=== PATIENT | female | born 1935 | race Caucasian/White ===

== ENCOUNTER → 2018-03-17 | Outpatient (CLI) | payer MEDICARE ==
[~2018-03-17] MED LIST: CALMAGZIN PO; Colace100 MG PO; DICL75ER PO; HYDR1TAB94 PO; LEVSOD100 PO; LOSARTAN POTAS100 MG PO; Lovastatin20 MG PO; NAPR500EC PO; Norco 5-325 Ta1 EACH PO; OMEP20ER PO; PROBIOTIC1 EAC1 PO
== END | disposition home or self-care (01) ==
LOC: PLD 14:09 → LAB SHORT 14:09
DX: D04.30 Carcinoma in situ of skin of unspecified part of face (principal)
CPT/HCPCS: 88305

== ENCOUNTER → 2020-05-13 | Outpatient (CLI) | payer MEDICARE | END | disposition home or self-care (01) | LOC: LAB SHORT 08:28 → PLD 08:28 | DX: D09.8 Carcinoma in situ of other specified sites (principal); L72.0 Epidermal cyst; L90.5 Scar conditions and fibrosis of skin | CPT/HCPCS: 88305 ==

== ENCOUNTER 2020-10-29 07:16 | Day surgery (SDC) | payer MEDICARE ==
[~2020-10-29] VITALS: Ht 169 cm; Wt 73.7 kg
--- NOTE | 2020-10-29 08:22 | NUR ---
INTO SDS VIA W/C. ABLE TO TRANSFER TO BED INDEPENDENTLY. Lungs clear T/O to Auscultation. Patient confirms NPO status and agrees with scheduled surgery.
--- NOTE | 2020-10-29 08:58 | NUR ---
10/29/20 0859 Rodrigue Yepez History, Chart, Medications and Allergies reviewed before start of procedure.MONITOR INTACT WITH CONTINUOUS PULSE OXIMETRY AND INTERMITTENT BP.3-LEAD EKG REVIEWED WITH PHYSICIAN PRIOR TO START OF PROCEDURE.O2 VIA N/C INTACT THROUGHOUT SEDATION/PROCEDURE. PATIENT DETERMINED TO BE ASA APPROPRIATE FOR PROPOFOL SEDATION PRIOR TO START OF PROCEDURE BY DR. PITTS.
--- NOTE | 2020-10-29 10:02 | NUR ---
Discharge instructions reviewed with patient. Patient verbalizes understanding. Copy given to patient to take home. PT STATES ABLE TO SWALLOW WELL, NO PAIN. DRINKING WATER. REVIEWED DC INSTRUCTIONS W/DAUGHTER LIZ WELL. Discharged via wheelchair to private car for ride home.
[2021-01-28] MEDS ORDERED: CLOP75 PO (12:50)
[2021-01-28] MEDS ORDERED: Aspir 8181 MG PO (12:50)
[2021-01-28] MEDS ORDERED: PANT40 PO (12:52)
== END 2020-10-29 10:00 | disposition home or self-care (01) ==
LOC: ORSCMMR 07:16 → ORD 08:30 → ORSCMMR 08:30
PROVIDERS: Internal Medicine Gastroenterology
PROC: 0DB58ZX Excision of Esophagus, Via Natural or Artificial Opening Endoscopic, Diagnostic (ICD-10-PCS; principal; 2020-10-29 08:30)
PROC: 0DB48ZX Excision of Esophagogastric Junction, Via Natural or Artificial Opening Endoscopic, Diagnostic (ICD-10-PCS; principal; 2020-10-29 08:30)
PROC: 0D758ZZ Dilation of Esophagus, Via Natural or Artificial Opening Endoscopic (ICD-10-PCS; principal; 2020-10-29 08:30)
PROC: 0DB68ZX Excision of Stomach, Via Natural or Artificial Opening Endoscopic, Diagnostic (ICD-10-PCS; principal; 2020-10-29 08:30)
DX: R13.14 Dysphagia, pharyngoesophageal phase (principal); K22.10 Ulcer of esophagus without bleeding; K44.9 Diaphragmatic hernia without obstruction or gangrene; K21.9 Gastro-esophageal reflux disease without esophagitis; Z86.73 Personal history of transient ischemic attack (TIA), and cerebral infarction without residual deficits; I25.2 Old myocardial infarction; I10 Essential (primary) hypertension; E03.9 Hypothyroidism, unspecified; E78.00 Pure hypercholesterolemia, unspecified; Z79.82 Long term (current) use of aspirin; Z79.899 Other long term (current) drug therapy
CPT/HCPCS: 88305; 88342; A9270; C1726; J2704; J7120

== ENCOUNTER → 2020-12-20 | Outpatient (CLI) | payer MEDICARE ==
[2020-12-20 12:27] LABS: Bun/Creatinine Ratio 15.7 (12.0-20.0); Calcium, Blood 9.1 mg/dL (8.5-10.1); Creatinine, Blood 1.08 mg/dL (0.40-1.00); Potassium, Blood 4.1 mmol/L (3.5-5.5); Thyroid Stimulating Hormone 0.046 uIU/mL (0.360-4.800)
== END | disposition home or self-care (01) ==
LOC: LAB SHORT 12:03
PROVIDERS: Physician Assistant
DX: E03.9 Hypothyroidism, unspecified (principal); R60.9 Edema, unspecified
CPT/HCPCS: 80048; 83880; 84443; 84484; 85379

== ENCOUNTER 2021-01-29 08:39 | Day surgery (SDC) | payer MEDICARE ==
[~2021-01-29] VITALS: Ht 172.7 cm; Wt 73.1 kg
[~2021-01-29 08:39] MED LIST changes: +Aspir 8181 MG PO; +CLOP75 PO; +PANT40 PO
--- NOTE | 2021-01-29 09:30 | NUR ---
PATIENT STATES SHE IS BEING TREATED FOR ACUTE CHF AN OUTPATIENT, AND BREATHING HAS IMPROVED, BUT SHE STILL FEELS SOB WITH ACTIVITY OR SHORT WALKS. PATIENT AMBULATED TO BEDSIDE IN SDS. RESP. EVEN AND UNLABORED. LUNGS CLEAR T/O TO AUSCULTATION. NO COUGHING NOTED. DR PITTS INFORMED OF PATIENT'S C/O OF SOB WITH ACTIVITY. HE WAS ASSESS PATIENT AT BEDSIDE PRIOR TO PLANNED EGD.
--- NOTE | 2021-01-29 09:32 | NUR ---
Patient States Post-Procedure ride home has been arranged with daughter, Mami Castaon.
[2021-01-29] MEDS ORDERED: AMLO5 PO (09:44)
--- NOTE | 2021-01-29 10:05 | NUR ---
LEFT HEARING AID REMOVED AND PLACED IN PATIENT'S PURSE PER HER REQUEST. RIGHT HEARING AID LEFT IN PLACE. DENTURES REMOVED.
--- NOTE | 2021-01-29 10:26 | NUR ---
01/29/21 1026 Bowen Pang History, Chart, Medications and Allergies reviewed before start of procedure. MONITOR INTACT WITH CONTINUOUS PULSE OXIMETRY AND INTERMITTENT BP. 3-LEAD EKG REVIEWED WITH PHYSICIAN PRIOR TO START OF PROCEDURE. O2 VIA N/C INTACT THROUGHOUT SEDATION/PROCEDURE. HURRICAINE SPRAY TO OROPHARYX. Bite Block Placed. PATIENT DETERMINED TO BE ASA APPROPRIATE FOR PROPOFOL SEDATION PRIOR TO START OF PROCEDURE BY DR. PITTS.
--- NOTE | 2021-01-29 11:11 | NUR ---
GAGANDEEP PO WELL, DC INSTRUCTIONS GONE OVER, ALL QUESTIONS ANSWERED. DC HOME VIA WC, RIDE HOME LIZ (DAUGHTER).
== END 2021-01-29 11:25 | disposition home or self-care (01) ==
LOC: ORSCMMR 08:39 → ORD 09:30 → ORSCMMR 09:30
PROVIDERS: Internal Medicine Gastroenterology
PROC: 0DB48ZX Excision of Esophagogastric Junction, Via Natural or Artificial Opening Endoscopic, Diagnostic (ICD-10-PCS; principal; 2021-01-29 09:30)
DX: R13.10 Dysphagia, unspecified (principal); Z87.11 Personal history of peptic ulcer disease; K44.9 Diaphragmatic hernia without obstruction or gangrene; Z86.73 Personal history of transient ischemic attack (TIA), and cerebral infarction without residual deficits; K21.9 Gastro-esophageal reflux disease without esophagitis; I10 Essential (primary) hypertension; E78.00 Pure hypercholesterolemia, unspecified; Z79.01 Long term (current) use of anticoagulants; Z79.82 Long term (current) use of aspirin; Z79.899 Other long term (current) drug therapy
CPT/HCPCS: 88305; 88312; A9270; J2704; J7120

== ENCOUNTER → 2022-04-06 | Outpatient (CLI) | payer MEDICARE ==
[~2022-04-06] MED LIST changes: +AMLO5 PO
[2022-04-06 19:37] LABS: BASOPHILS ABSOLUTE AUTO 0.09 K/mm3 (0.00-0.23); BASOPHILS PERCENT AUTO 1 % (0-2); EOSINOPHILS PERCENT AUTO 0 % (0-6); Hematocrit 28.5 % (33.0-51.0); Hemoglobin 9.6 g/dL (11.5-16.0); IMMATURE GRAN ABSOLUTE AUTO 0.05 K/mm3 (0.00-0.10); IMMATURE GRAN PERCENT AUTO 0 % (0-1); LYMPHOCYTES ABSOLUTE AUTO 2.12 K/mm3 (0.84-5.20); LYMPHOCYTES PERCENT AUTO 16 % (21-46); MONOCYTES ABSOLUTE AUTO 1.19 K/mm3 (0.16-1.47); MONOCYTES PERCENT AUTO 9 % (4-13); Mean Corpuscular HGB 28.7 pg (26.0-34.0); Mean Corpuscular HGB Conc 33.7 g/dL (31.5-36.5); Mean Corpuscular Volume 85 fL (80-100); Mean Platelet Volume 10.2 fL (9.1-12.4); NEUTROPHILS ABSOLUTE AUTO 10.23 K/mm3 (1.96-9.15); NEUTROPHILS PERCENT AUTO 75 % (41-73); Platelet Count 421 K/mm3 (150-400); RDW Coefficient Variation 12.2 % (11.7-14.2); RDW Standard Deviation 37.7 fL (35.1-46.3); Red Blood Cell Count 3.35 M/mm3 (3.80-5.20); White Blood Cell Count 13.68 K/mm3 (4.00-11.30)
[2022-04-06 19:48] LABS: Albumin, Blood 3.5 g/dL (3.4-5.0); Albumin/Globulin Ratio 1.1 (0.8-1.8); Bilirubin, Total 0.3 mg/dL (0.1-1.0); Bun/Creatinine Ratio 21.4 (12.0-20.0); Calcium, Blood 8.9 mg/dL (8.5-10.1); Creatinine, Blood 1.45 mg/dL (0.40-1.00); Globulin, Blood 3.1 g/dL (2.2-4.0); Potassium, Blood 4.8 mmol/L (3.5-5.5); Thyroid Stimulating Hormone 0.371 uIU/mL (0.360-4.800); Thyroxine (T4) 11.6 ug/dL (4.8-13.9); Total Protein, Blood 6.6 g/dL (6.4-8.2)
== END | disposition home or self-care (01) ==
LOC: LAB 12:50 → LAB SHORT 12:50
PROVIDERS: Family Medicine
DX: R53.83 Other fatigue (principal)
CPT/HCPCS: 80053; 84436; 84443; 85025

== ENCOUNTER → 2024-03-06 | Outpatient (CLI) | payer MEDICARE | LOC: LAB SHORT 11:43 → LAB 11:43 | DX: N39.0 Urinary tract infection, site not specified (principal) | CPT/HCPCS: 87086 ==